=== PATIENT | female | born 1945 | race Caucasian/White ===

== ENCOUNTER → 2016-03-14 | Outpatient (CLI) | payer OTHER, MEDICARE ==
--- NOTE | 2016-03-15 08:10 | DX ---
Bone Densitometry Indication: Osteopenia. Technique: DEXA scan was performed on [employer] Discovery W Bone Densitometer. The hips could not be im aged due to bilateral hip replacements. Comparison Study: February 17, 2011. Results: Lumbar Spine (L1-L4) BMD: 0.934 T-score: -1.0 Prior BMD: 0.886 Percent change: 5.4% Forearm (Left) BMD: 0.482 T-score: -1.6 Prior BMD: 0.509 Percent Change: -5.3% Conclusion: Osteopenia. In comparison to the previous study from February 2011, there has been a significant increase in the patient's measured BMD of the lumbar spine and a significant decrease in the measured BMD of the left forearm. Additional Comments: 1. FRAX calculation could not be done due to bilateral hip replacements. 2. Consider repeating this study in 2 years or as clinically indicated. NOTE: The risk of osteoporotic fracture increases approximately two-fold for each 1.0 SD decrease in T-score. The T-score represents the standard deviations from a young normal, same sex, reference po pulation. Low bone density is not the only risk factor for fracture. Clinical factors to consider include fall risk, previous osteoporotic fracture, family history of fractures, smoking, and low body weight. Patients who have an unexpectedly low BMD may need to be evaluated for secondary causes of low bone m ineral density. In comparing the present study to a prior study, lack of a significant increase or decrease in BMD ma y signify efficacy of the patient's present treatment. Bone mineral density measurements performed with densitometers produced by different manufacturers ar e not comparable. For the most reproducible BMD measurement, subsequent exams should be performed on the same densitometer.
== END ==
LOC: BMCIMAGING 13:53
PROVIDERS: ATTEND Obstetrics & Gynecology
DX: Z13.820 Encounter for screening for osteoporosis (principal); M85.80 Other specified disorders of bone density and structure, unspecified site

== ENCOUNTER → 2016-08-08 | Outpatient (CLI) | payer OTHER, MEDICARE | LOC: FIMAGING 13:51 | PROVIDERS: ATTEND Obstetrics & Gynecology | DX: Z12.31 Encounter for screening mammogram for malignant neoplasm of breast (principal) | CPT/HCPCS: G0202 ==

== ENCOUNTER → 2017-12-10 | Outpatient (CLI) | payer OTHER, MEDICARE | LOC: FIMAGING 11:03 | PROVIDERS: ATTEND Obstetrics & Gynecology | DX: Z12.31 Encounter for screening mammogram for malignant neoplasm of breast (principal); Z80.3 Family history of malignant neoplasm of breast ==